=== PATIENT | male | born 1980 | race Caucasian/White ===

== ENCOUNTER 2021-09-24 15:36 | Emergency (ER) | payer MEDICAID, SELFPAY ==
[~2021-09-24] VITALS: Ht 177.8 cm; Wt 81.6 kg
[2021-09-24 16:00] VITALS: BP_SYST 122
--- NOTE | 2021-09-24 20:22 | NUR ---
ER Dr. Haas at Triage examining patient.
[2021-09-24 21:07] LABS: BASOPHILS % (AUTO) 0.3 % (0.0-2.0); HEMATOCRIT 50.3 % (36-54); HEMOGLOBIN 17.2 g/dL (14.0-18.0); LYMPHOCYTES # (AUTO) 1.1 K/uL (1.0-5.5); MEAN CORPUSCULAR HEMOGLOBIN 30 pg (27-31); MEAN CORPUSCULAR HGB CONC 34 % (32-36); MEAN CORPUSCULAR VOLUME 86 fL (79.0-98.0); MONOCYTES # (AUTO) 0.5 K/uL (0.0-1.0); MONOCYTES % (AUTO) 9.7 % (1.7-9.3); NEUTROPHILS # (AUTO) 3.7 K/uL (1.8-7.7); PLATELET COUNT (AUTO) 138 K/uL (130-430); RED BLOOD CELL COUNT(AUTO) 5.83 MIL/uL (4.2-6.2); RED CELL DISTRIBUTION WIDTH 13.6 % (9.0-15.0); WHITE BLOOD COUNT (AUTO) 5.4 K/uL (4.8-10.8)
[2021-09-24 21:15] LABS: CALCIUM 8.1 mg/dL (8.4-11.0); CREATININE 0.95 mg/dL (0.55-1.30); POTASSIUM 3.2 mmol/L (3.5-5.1)
[2021-09-24 21:29] LABS: ALBUMIN 3.6 g/dL (3.4-4.8); TOTAL BILIRUBIN 0.5 mg/dL (0.0-1.0)
--- NOTE | 2021-09-24 21:38 | NUR ---
Dr. Haas at [facility] and explain results and treatment plans.
[2021-09-24] MEDS ORDERED: IBUP-1971 PO (21:45)
[2021-09-24] MEDS ORDERED: PRED20TA PO (21:45)
[2021-09-24 21:56] VITALS: BP_SYST 122
--- NOTE | 2021-09-24 21:56 | NUR ---
Patient D/C without D/C papers.
--- NOTE | 2021-09-24 21:56 | NUR ---
Called patient at the [facility]. no show
== END 2021-09-24 21:56 | disposition home or self-care (01) ==
LOC: SED 15:36
DX: U07.1 COVID-19 (principal); K52.9 Noninfective gastroenteritis and colitis, unspecified; G89.29 Other chronic pain; M54.50 Low back pain, unspecified
CPT/HCPCS: 36415; 76376; 80053; 82150; 83605; 83690; 85025; 86140; 99284